=== PATIENT | female | born 1955 | race Caucasian/White ===

== ENCOUNTER 2024-07-04 10:31 | Emergency (ER) | payer OTHER ==
[2024-07-04] MEDS ORDERED: IBUPROFEN 400 MG TAB ONE (10:49)
--- NOTE | 2024-07-04 11:09 | RAD REPORT ---
EXAMINATION: XR LEFT FOOT CLINICAL INDICATION: PAIN TECHNIQUE: Multiple projections of the left foot were obtained. COMPARISON: No prior exam. FINDINGS: Small calcaneal spurs. No acute fracture or dislocation seen.
--- NOTE | 2024-07-04 11:09 | RAD REPORT ---
EXAMINATION: XR LEFT ANKLE CLINICAL INDICATION: Female, 69 years old. PAIN TECHNIQUE: 3 view radiograph of the left ankle were obtained. COMPARISON: No prior exam. FINDINGS: Small calcaneal spurs. No fracture or dislocation seen.
--- NOTE | 2024-07-04 12:19 | EDPHYS ---
Physician Documentation [facility] Name: Marva Kan Age: 69 yrs Sex: Female : 1955 Arrival Date: 07/04/2024 Time: 10:31 Bed DX3 Private MD: ED Physician Сергей Traylor HPI: 07/04 12:14 This 69 yrs old Female presents to ER via Wheelchair with complaints of Foot Injury - ci left, Ankle Injury - Left. 12:14 Patient is a 69-year-old female with PMH osteoporosis who presents to the ED with left ci foot pain that began an hour ago. Patient stepped on uneven surface and now has burning to the left foot. Denies any falls/trauma.. Historical: - Allergies: 10:50 No Known Allergies; hb - Home Meds: 10:50 hydroxychloroquine oral [Active]; prednisone 5 mg Oral tablet [Active]; aspirin 81 mg hb Oral tablet,chewable [Active]; - PMHx: 10:50 Osteoporosis; hb - PSHx: 10:50 Foot - Right; hb - Immunization history:: Adult Immunizations up to date. - Infectious Disease History:: Denies. - Social history:: Smoking status: Patient/guardian denies using tobacco. - History obtained from: spouse. ROS: 12:14 MS/extremity: Positive for pain, Negative for injury or acute deformity, ecchymosis, ci erythema, laceration, 12:14 Constitutional: Negative for fever, chills, and weight loss, 12:14 Cardiovascular: Negative for chest pain, edema, orthopnea, Exam: 12:14 Constitutional: This is a well developed, well nourished patient who is awake, alert, ci and in no acute distress. Head/Face: Normocephalic, atraumatic. Eyes: Pupils equal round and reactive to light, extra-ocular motions intact. Lids and lashes normal. Conjunctiva and sclera are non-icteric and not injected. Cornea within normal limits. Periorbital areas with no swelling, redness, or edema. Cardiovascular: Regular rate and rhythm with a normal S1 and S2. No gallops, murmurs, or rubs. Normal PMI, no JVD. No pulse deficits. Respiratory: Lungs have equal breath sounds bilaterally, clear to auscultation and percussion. No rales, rhonchi or wheezes noted. No increased work of breathing, no retractions or nasal flaring. Abdomen/GI: Soft, non-tender, with normal bowel sounds. No distension or tympany. No guarding or rebound. No evidence of tenderness throughout. MS/ Extremity: Pulses equal, no cyanosis. Neurovascular intact. Full, normal range of motion. Left foot atraumatic, no reproducible tenderness to palpation, no step-offs or deformity. Left lower extremity compartment is soft, DP/PT 2+, sensation to light touch is intact, cap refill less than 2 seconds. Neuro: Awake and alert, GCS 15, oriented to person, place, time, and situation. Cranial nerves II-XII grossly intact. Motor strength 5/5 in all extremities. Sensory grossly intact. Cerebellar exam normal. Normal gait. Vital Signs: 10:44 BP 167 / 71; Pulse 64; Resp 16; Temp 97.3; Pulse Ox 99% on R/A; Weight 63.5 kg; Height hb 5 ft. 3 in. ; Pain 7/10; 10:44 Body Mass Index 24.80 (63.50 kg, 160.02 cm) hb 10:44 Pain Scale: Adult hb MDM: 10:48 Medical Screening Exam initiated ci 12:14 Differential diagnosis: fracture, sprain, arthritis. Data reviewed: vital signs, nurses ci notes. ED course: X-ray with no acute fracture, no acute findings warranting admission at this time. Stable for discharge with close outpatient follow-up.. 07/04 10:53 Order name: Ankle Left 2 View XRAY; Complete Time: 12:17 ci 07/04 12:17 Interpretation: No acute disease: Spurs, no fx. ci 07/04 10:53 Order name: Foot Left 2 View XRAY; Complete Time: 12:17 ci 07/04 12:17 Interpretation: No acute disease. ci Administered Medications: 10:58 Drug: Ibuprofen PO 400 mg PO once Route: PO; hb Disposition Summary: 07/04/24 12:19 Discharge Ordered Notes: Location: Home ci Condition: Stable ci Diagnosis - Calcaneal spur, left foot ci - Elevated blood-pressure reading, without diagnosis of hypertension ci Followup: ci - With: Private Physician - When: 2 - 3 days - Reason: Recheck today's complaints, Re-evaluation by your physician Discharge Instructions: - Discharge Summary Sheet ci - Heel Spur ci - How to Take Your Blood Pressure, [id number] ci - Foot Pain ci Forms: - Medication Reconciliation Form ci - Antibiotic Education ci - Prescription Opioid Use ci - Patient Portal Instructions ci - Leadership Thank You Letter ci Prescriptions: - Anaprox DS 550 mg Oral Tablet - take 1 tablet ORAL route every 12 hours As needed; 20 tablet; Refills: 0, ci Product Selection Permitted Signatures: Dispatcher [employer] Sailaja Bates RN RN Сергей Traylor ci
--- NOTE | 2024-07-04 12:19 | ER ---
Nurse's Notes [facility] Name: Marva Kan Age: 69 yrs Sex: Female : 1955 Arrival Date: 07/04/2024 Time: 10:31 Bed DX3 Private MD: Diagnosis: Calcaneal spur, left foot;Elevated blood-pressure reading, without diagnosis of hypertension Presentation: 07/04 10:44 Chief complaint: Left foot and ankle pain after stepping into uneven surface 1 hour hb ago. Coronavirus screen: At this time, the client does not indicate any symptoms associated with coronavirus-19. Ebola Screen: No symptoms or risks identified at this time. Initial Sepsis Screen: Does the patient meet any 2 criteria? No. Patient's initial sepsis screen is negative. Does the patient have a suspected source of infection? No. Patient's initial sepsis screen is negative. Risk Assessment: Do you want to hurt yourself or someone else? Patient reports no desire to harm self or others. Onset of symptoms was July 04, 2024. 10:44 Method Of Arrival: Wheelchair hb 10:44 Acuity: SLADE 4 hb Historical: - Allergies: 10:50 No Known Allergies; hb - Home Meds: 10:50 hydroxychloroquine oral [Active]; prednisone 5 mg Oral tablet [Active]; aspirin 81 mg hb Oral tablet,chewable [Active]; - PMHx: 10:50 Osteoporosis; hb - PSHx: 10:50 Foot - Right; hb - Immunization history:: Adult Immunizations up to date. - Infectious Disease History:: Denies. - Social history:: Smoking status: Patient/guardian denies using tobacco. - History obtained from: spouse. Vital Signs: 10:44 BP 167 / 71; Pulse 64; Resp 16; Temp 97.3; Pulse Ox 99% on R/A; Weight 63.5 kg; Height hb 5 ft. 3 in. ; Pain 7/10; 10:44 Body Mass Index 24.80 (63.50 kg, 160.02 cm) hb 10:44 Pain Scale: Adult hb ED Course: 10:33 Patient arrived in ED. im 10:36 Сергей Traylor is Attending Physician. ci 10:43 Arm band placed on. hb 10:50 Triage completed. hb 11:05 Ankle Left 2 View XRAY In Process Unspecified. EDMS 11:05 Foot Left 2 View XRAY In Process Unspecified. EDMS 12:39 Sailaja Monsivais, RN is Primary Nurse. hb Administered Medications: 10:58 Drug: Ibuprofen PO 400 mg PO once Route: PO; hb Outcome: 12:19 Discharge ordered by . ci 12:39 Patient left the ED. hb Signatures: Dispatcher [employer] EDSailaja Oswald RN RN Kami Jarrell Сергей Traylor ci
== END 2024-07-04 12:39 | disposition home or self-care (01) ==
LOC: ER 10:31
DX: M77.32 Calcaneal spur, left foot (principal); R03.0 Elevated blood-pressure reading, without diagnosis of hypertension; M81.0 Age-related osteoporosis without current pathological fracture; Z79.82 Long term (current) use of aspirin; Z79.899 Other long term (current) drug therapy
CPT/HCPCS: 99282